=== PATIENT | female | born 1965 | race Caucasian/White ===

== ENCOUNTER 2022-09-11 14:08 | Outpatient (REF) | payer SELFPAY ==
[2022-09-11 21:26] LABS: ALT 19 U/L (14-59); AST 14 U/L (15-37); Albumin 4.1 g/dL (3.4-5.0); Alkaline Phosphatase 72 U/L (46-116); Anion Gap 5.6 mmol/L (3-11); BUN 18 mg/dL (7-18); Bilirubin, Total 0.3 mg/dL (0.2-1.0); CO2 31.4 mmol/L (21.0-32.0); Calcium 9.1 mg/dL (8.5-10.1); Chloride 102 mmol/L (98-107); Estimated GFR 66.12 (mL/min/1.73m2); Glucose 88 mg/dL (74-106); Potassium 4.4 mmol/L (3.5-5.1); Sodium 139 mmol/L (136-145); TSH (W/Ref FT4) 2.69 uIU/mL (0.36-3.74); Total Protein 7.3 g/dL (6.4-8.2)
[2022-09-14 11:32] LABS: Hepatitis C Ab w Rflx HCV PCR Negative (Negative)
[2022-09-14 12:11] LABS: HIV-1/2 Ag & Ab Screen Negative (Negative)
== END 2022-09-11 14:09 | disposition home or self-care (01) ==
LOC: NCHCN 14:08
PROVIDERS: Visit Provider Family Medicine
DX: R63.0 Anorexia (principal); F11.11 Opioid abuse, in remission
CPT/HCPCS: 80053; 86803; 87389; 84443